=== PATIENT | female | born 1970 | race Caucasian/White ===

== ENCOUNTER → 2017-06-25 | Outpatient (CLI) | payer MEDICAID ==
[2017-06-25 10:35] VITALS: BP 183/112; PULSE 87; RESP 16; BMI 44.4
--- NOTE | 2017-06-25 12:13 | P.GSHP ---
History of Present Illness H&P Date: 06/25/17 Chief Complaint: Morbid obesity BMI 44 46 years old female with morbid obesity BMI 44, height 5 feet 3.75 inches, weight 116.34KG presents for bariatric surgery consultation.Patient has elected to undergo laparoscopic sleeve gastrectomy. She has attended weight loss seminar. Shee has attempted nonsurgical weight loss with special diets and exercise regimen. She has lost some weight but is unable to maintain sustained results. Her comorbid conditions include hypertension, insominia, osteoarthritis involving right knee and hip. She has occasional reflux not requiring daily PPi. Resolves with diet modification. Preoperative visit #1, 06/25/2017, weight 116.34 cages, BMI 44 - Review of Systems Comment: Constitutional: Denies fever, weight loss or loss of appetite HEENT: No difficulty in vision or hearing. Denies dysphagia. Cardiovascular: Denies chest pain, palpitations, dizziness, shortness of breath. Respiratory: Recent upper respiratory tract infection with dry cough. Long- standing asthma well controlled with rescue inhalers. Gastrointestinal: No recent change in bowel habits, . Integumentary: No skin ulcers or breakdown Genitourinary: No urinary incontinence, hematuria or dysuria Neurologic: No seizures, denies weakness in upper or lower extremities Musculoskeletal: Right knee pain. Psychiatry: NO history of depression, no suicidal ideation, no anxiety or psychosis Past Medical History Past Medical History: GERD/Reflux, Hyperlipidemia, Hypertension, Osteoarthritis (OA) Additional Past Medical History / Comment(s): Insomnia, Migraine headaches, High cholesterol (on and off of medications depending on lipid levels), plantar fasciatis in bilateral feet. Ankle, knee, low back pain. Very strong family history of heart problems/heart attacks resulting in at young ages. History of Any Multi-Drug Resistant Organisms: None Reported Past Surgical History: Appendectomy, Cholecystectomy, Tubal Ligation Additional Past Surgical History / Comment(s): tubal ligation x2, D & C, Uterine ablation Past Anesthesia/Blood Transfusion Reactions: No Reported Reaction Smoking Status: Never smoker Past Alcohol Use History: Rare Past Drug Use History: None Reported - Past Family History Mother Family Medical History: Diabetes Mellitus, Hypertension Father Family Medical History: Coronary Artery Disease (CAD), Hypertension Brother(s) Family Medical History: Coronary Artery Disease (CAD), Hypertension, Myocardial Infarction (MT) Additional Family Medical History / Comment(s): MT at age 47 Medications and Allergies Home Medications Medication Instructions Recorded Confirmed Type Azelastine HCl [Astepro] 137 mcg NASAL DAILY 06/25/17 06/25/17 History Bisoprolol-Hctz 5-6.25 mg [Ziac 1 each PO DAILY 06/25/17 06/25/17 History 5-6.25] Bumetanide [Bumex] 1 mg PO DAILY PRN 06/25/17 06/25/17 History Buta/APAP/Caf/Cod 35-518-63-30 1 - 2 cap PO Q4H PRN 06/25/17 06/25/17 History [Fioricet w/Cod 58-295-76-30MG] LORazepam [Ativan] 1 mg PO HS 06/25/17 06/25/17 History Lansoprazole [Prevacid] 15 mg PO BID 06/25/17 06/25/17 History Allergies Allergy/AdvReac Type Severity Reaction Status Date / Time niacin Allergy Rash/Hives Verified 06/25/17 09:39 [From Niaspan Extended-Release] Penicillins Allergy Rash/Hives Verified 06/25/17 09:39 Surgical - Exam Vital Signs Pulse Resp BP 87 16 183/112 06/25/17 09:36 06/25/17 09:36 06/25/17 09:36 General: Patient is alert and oriented to time, place and person and cooperative with exam. He is not in acute distress. HEENT: No pallor, no icterus, no thyroid enlargement, no cervical lymphadenopathy. Chest: Bilateral equal breath sounds present. No wheezes, no crackles. Cardiovascular: Regular rate and rhythm. Abdomen: Soft, nontender, nondistended. No right upper quadrant tenderness. Hensley sign negative. Integumentary: Bilateral lower extremity chronic venous dermatitis. No active ulcers or discharge. Neurologic: Cranial nerves II-XII intact. Strength upper and lower extremities 5/5. No focal neurologic deficits. Gait is normal. Psychiatric: No anxiety or psychosis. No suicidal thoughts. Assessment and Plan (1) Morbid obesity with BMI of 40.0-44.9, adult Status: Acute (2) Hypertension Status: Acute Plan: 1. A detailed discussion was held about the risks, benefits and potential complications of laparoscopic sleeve gastrectomy including bleeding, infection, anastomosis leak, stenosis, DVT and PE. Patient demonstrated understanding and willing to undergo the procedure. Patient was explained about high-protein liquid diet 2 weeks prior to surgery 2. Formal Dietitian consult pending. She was recommended to drink protein shakes for snacks. I discussed about reducing the portion size, limiting refined carbohydrates and sugar and increase protein intake 3. Patient scheduled for esophagogastroduodenoscopy with antral biopsy 4. Baseline lab work ordered. 12-lead EKG ordered 5. PCP recommendations and clearance awaited- NEEDS ECHO CARDIOGRAM - Hypertension 6. Psychiatrist/ psychologist's recommendations pending 7. Possible Sleeve in Sep 2017 8. Bilateral screening mammogram
== END | disposition home or self-care (01) ==
LOC: BARWHC3 09:11
PROVIDERS: ATTEND Surgery
DX: E66.01 Morbid (severe) obesity due to excess calories (principal); I10 Essential (primary) hypertension; D50.8 Other iron deficiency anemias; E44.1 Mild protein-calorie malnutrition; E55.9 Vitamin D deficiency, unspecified; Z68.41 Body mass index [BMI] 40.0-44.9, adult; Z79.899 Other long term (current) drug therapy; Z88.0 Allergy status to penicillin
CPT/HCPCS: 99201

== ENCOUNTER 2017-07-18 11:00 | Day surgery (SDC) | payer MEDICAID ==
[2017-07-17 14:15] VITALS: BMI 43.2
[~2017-07-18 11:00] MED LIST: LACTATED RINGERS 1,000 ML IV SCH
[2017-07-18] MEDS ORDERED: LIDOCAINE 1% 20 ML VIAL (10MG/ML) FOR IV START INTRADERMA ONE (11:06)
[2017-07-18 11:30] VITALS: RESP 16; TEMP 97.6
[2017-07-18] MEDS ORDERED: LIDOCAINE 1% INJ 10MG/ML (20 ML MDV) ONE (11:31)
[2017-07-18] MEDS ORDERED: PROPOFOL 10 MG/ML 20 ML VIAL IV ONE (11:31)
--- NOTE | 2017-07-18 11:52 | P.OP ---
Date of Procedure: 07/25/17 Anesthesia: ARASH Surgeon: Anabel Disla Pathology: other Condition: stable Disposition: PACU Operative Findings: GE junction at 38 cm Gastric polyps Patulous hiatus- no definite hiatal hernia Description of Procedure: A timeout was performed to verify the correct patient and correct procedure. Patient was on continuous vitals and pulse ox monitoring throughout the procedure. She was placed in lateral decubitus position and an oral bite block was inserted. A well-lubricated Olympus upper endoscope was passed orally. The esophagus was intubated without difficulty. The vocal cords were visualised and protected at all times. The endoscope was passed beyond the pylorus into the first and second portion of the duodenum. No abnormality was noted in the duodenum mucosa. Two random biopsies were taken from the gastric antrum using cold biopsy forceps. The scope was then retroflexed. No hiatal hernia. Patulous GE junction. No mass, active ulcer or bleeding stigmata noted within the gastric lumen. The GE junction is measured at 38 cm from the incisors . No evidence of reflux esophagitis. Bx taken from GE junction.The endoscope was gradually withdrawn. No abnormality identified in the esophagus. Patient tolerated the procedure well and was taken to post anesthesia care unit in stable condition. SPECIMEN: Antral biopsy Final Pathologic Diagnosis A. GASTRIC ANTRUM, BIOPSY: CHRONIC GASTRITIS. IMMUNOPEROXIDASE STAIN NEGATIVE FOR HELICOBACTER PYLORI ORGANISMS (CONTROLS APPROPRIATE). B. GASTROESOPHAGEAL JUNCTION, BIOPSY: BENIGN GASTRIC GLANDULAR MUCOSA SHOWING MILD CHRONIC GASTRITIS AND MUCOSAL REACTIVE CHANGES. NEGATIVE FOR INTESTINAL METAPLASIA. SQUAMOUS MUCOSA NOT PRESENT FOR EVALUATION.
[2017-07-18 12:28] VITALS: BP 136/78; PULSE 70
== END 2017-07-18 12:56 | disposition home or self-care (01) ==
LOC: ORWHC2ENDO 11:00
PROVIDERS: ATTEND Surgery
DX: K31.7 Polyp of stomach and duodenum (principal); E66.01 Morbid (severe) obesity due to excess calories; Z68.41 Body mass index [BMI] 40.0-44.9, adult; K29.50 Unspecified chronic gastritis without bleeding; I10 Essential (primary) hypertension; J98.6 Disorders of diaphragm; K21.9 Gastro-esophageal reflux disease without esophagitis; F41.9 Anxiety disorder, unspecified; M19.90 Unspecified osteoarthritis, unspecified site; Z88.0 Allergy status to penicillin; Z88.8 Allergy status to other drugs, medicaments and biological substances; Z79.891 Long term (current) use of opiate analgesic; Z79.899 Other long term (current) drug therapy; Z82.49 Family history of ischemic heart disease and other diseases of the circulatory system
CPT/HCPCS: 81025; 88305; 88342; 43239; J2001; J2704

== ENCOUNTER → 2017-08-20 | Outpatient (CLI) | payer MEDICAID ==
[2017-08-20 13:51] VITALS: BMI 43.5
== END | disposition home or self-care (01) ==
LOC: BARWHC3 09:02
PROVIDERS: ATTEND Surgery
DX: E66.01 Morbid (severe) obesity due to excess calories (principal)
CPT/HCPCS: 97804